=== PATIENT | male | born 1955 | race Caucasian/White ===

== ENCOUNTER → 2017-05-28 | Outpatient (CLI) | payer OTHER | LOC: COL.PUL 10:51 | DX: Z02.71 Encounter for disability determination (principal); M16.11 Unilateral primary osteoarthritis, right hip; M41.86 Other forms of scoliosis, lumbar region; M51.36 Other intervertebral disc degeneration, lumbar region ==

== ENCOUNTER 2018-07-22 13:54 | Day surgery (SDC) | payer MEDICARE, OTHER ==
[~2018-07-22] VITALS: Ht 182.9 cm; Wt 122.2 kg
[2018-07-22 14:52] VITALS: BP 139/90; PULSE 75; TEMP 99.1
[2018-07-22] MEDS ORDERED: LIPITOR 80MG80 MG PO (15:12)
[2018-07-22] MEDS ORDERED: ASPIRIN E.C. 8181 MG PO (15:12)
[2018-07-22] MEDS ORDERED: COZAAR 50MG50 MG/TAB PO (15:12)
[2018-07-22] MEDS ORDERED: VOLTAREN GEL 1%1 TU TP (15:13)
[2018-07-22] MEDS ORDERED: PLAQUENIL 200M200 MG PO (15:14)
[2018-07-22] MEDS ORDERED: TURMERIC500 MG PO (15:15)
[2018-07-22] MEDS ORDERED: PROTONIX 40MG T40 MG PO (15:15)
[2018-07-22] MEDS ORDERED: OMEGA-3 1000 MG1 CAP PO (15:16)
[2018-07-22] MEDS ORDERED: MULTI VITAMINS1 TAB PO (15:16)
[2018-07-22] MEDS ORDERED: VITAMIN C500 MG PO (15:16)
--- NOTE | 2018-07-22 15:18 | NUR ---
UPON 1ST DOSE OF DILAUDID - PATIENT PLACED ON 02 AT 2L WITH SATS 90-91% INCREASED O2 TO 5L PER NC. O2 SATS AT CURRENT TIME 95% DR DONAHUE INTO TALK WITH PATIENT AND HIS .
--- NOTE | 2018-07-22 15:22 | NUR ---
PATIENT SLEEPING WITH SATS 93% ON 5L PER NC
--- NOTE | 2018-07-22 15:44 | NUR ---
PATIENT STATED THE PAIN IS COMING BACK. RECEIVED DILAUDID 0.5MG IV AT BEDSIDE.
[2018-07-22 18:02] VITALS: BP 127/75; PULSE 67; TEMP 98
[2018-07-22 18:15] VITALS: BP 130/77; PULSE 66; TEMP 98
--- NOTE | 2018-07-22 18:16 | NUR ---
PT TO ROOM 321 PER BED WITH REPORT FROM AN [employer] REPORT DEVELOPER @ [id number]. PT IS A/O X3, VOIDED ON ARRIVAL. VSS, PT DENIES PAIN. ORDERED FOOD AND IS DRINKING WITH NO N/V.
[2018-07-22 18:31] VITALS: BP 130/77; PULSE 66; TEMP 98
--- NOTE | 2018-07-22 18:59 | NUR ---
REPORT TO DARIELA RN.
--- NOTE | 2018-07-22 19:45 | NUR ---
REVIEWED DISCHARGE INSTRUCTIONS WITH PATIENT AND . DC'D IV SITE TO RIGHT FOREARM, ANGIOCATH INTACT. PATIENT VERBALIZES UNDERSTANDING OF DISCHARGE INSTRUCTIONS AND FOLLOW UP APPOINTMENT. PATIENT HAS PAIN MEDS AT HOME.
--- NOTE | 2018-07-22 20:00 | NUR ---
DISCHARGED VIA W/C TO PRIVATE CAR. BELONGINGS AND DISCHARGE INSTRUCTIONS SENT WITH PATIENT.
== END 2018-07-22 20:00 | disposition home or self-care (01) ==
LOC: SDCO 13:54
DX: N20.1 Calculus of ureter (principal); F17.210 Nicotine dependence, cigarettes, uncomplicated; I10 Essential (primary) hypertension; J44.9 Chronic obstructive pulmonary disease, unspecified; K21.9 Gastro-esophageal reflux disease without esophagitis; E11.9 Type 2 diabetes mellitus without complications; Z79.82 Long term (current) use of aspirin; Z88.0 Allergy status to penicillin; Z88.6 Allergy status to analgesic agent; Z80.9 Family history of malignant neoplasm, unspecified
CPT/HCPCS: C1769; C1894; C2617; J0690; J1170; J2405; J2704; J3010; Q9967